=== PATIENT | male | born 1990 | race Caucasian/White ===

== ENCOUNTER 2018-07-21 06:51 | Day surgery (SDC) | payer BC ==
--- NOTE | 2018-07-08 19:47 | HP ---
PREOPERATIVE HISTORY AND PHYSICAL: DATE OF ADMISSION/SURGERY: 07/21/18 DATE OF OFFICE VISIT: 07/05/18 ATTENDING SURGEON: Dr. Rosalinda Peetr.* (DICTATED BY NIKIA ARELLANO) PROCEDURE: Right shoulder excision of distal clavicle open and open coracoclavicular reconstruction. CHIEF COMPLAINT: Right shoulder. HISTORY OF PRESENT ILLNESS: Malik is a 28-year-old male who presents to the clinic for right shoulder type 3 AC separation that is symptomatic. He has failed conservative measures and therefore agreed to undergo a right shoulder excision of distal clavicle open and open coracoclavicular reconstruction with Dr. Peter on 07/21/18. PAST MEDICAL HISTORY: Denies current problems. PAST SURGICAL HISTORY: Wrist surgery. Denies complications with anesthesia. MEDICATIONS: No active medications. ALLERGIES: No known drug allergies. FAMILY HISTORY: Denies pertinent family history. SOCIAL HISTORY: He lives alone. He is a pie bakery laborer. He denies tobacco use. He reports occasional alcohol consumption. He exercises regularly. He is right- hand dominant. REVIEW OF SYSTEMS: A 14-point review of systems was reviewed with the patient. Positive for current complaint, otherwise negative. Denies fever, chills, chest pain, shortness of breath, history of DVT or PE, history of bleeding disorder. PHYSICAL EXAMINATION GENERAL: A 28-year-old well-developed, well-nourished male, in no acute distress. VITAL SIGNS: Height 75, weight 301, pulse 68, blood pressure 128/80, respiratory rate 18, temperature 98.1, BMI 37.7. HEENT: Normocephalic, atraumatic. PERRLA. Throat clear. NECK: Supple. PULMONARY: Lungs are clear to auscultation bilaterally. No wheezing, rhonchi, or rales. CARDIO: Regular rate and rhythm. S1, S2. No murmurs, gallops, or rubs. No edema. ABDOMEN: Positive bowel sounds. Soft, nontender. NEURO: Alert and oriented x3. Cranial nerves grossly intact. MUSCULOSKELETAL: Right upper extremity: Prominent AC joint. There is tenderness to palpation. Forward flexion to 155, abduction to 155, external rotation to 75, internal rotation to the lumbar spine. Full range of motion of the elbow, wrist, and hand. +2 radial pulse. Sensation intact to light touch distally. DIAGNOSTIC STUDIES: Multi-view x-rays of the right shoulder revealed grade 3 AC joint separation. PLAN: The patient is scheduled to undergo a right shoulder excision of distal clavicle open and open coracoclavicular reconstruction with Dr. Peter on . He will follow up 10 to 14 days postop for followup and suture removal. Percocet will be used for postop pain management. NIKIA ARELLANO [id number]/[facility] #: [id number] MTDD
[~2018-07-21 06:51] MED LIST: Buffered Lidocaine 0.9% SYRIN* 5 ML/SYR SYRINGE INTRADERM ONE; Lactated Ringers 1000 ML Bag* 1,000 ML IV SCH
[2018-07-21] MEDS ORDERED: ceFAZolin 2 GM PREMIX in ORs 2 GM/50 ML BAG IVPB ONE (08:06)
[2018-07-21] MEDS ORDERED: ceFAZolin 1 GM ADVAN(*) 1 GM ADDV.VIAL IVPB ONE (08:06)
[2018-07-21] MEDS ORDERED: Propofol* 10 MG/ML 20 ML BTL ONE (08:14)
[2018-07-21] MEDS ORDERED: Lidocaine 2% PF * 5 ML VIAL ONE (08:14)
[2018-07-21] MEDS ORDERED: Rocuronium* 10 MG/ML VIAL ONE (08:15)
[2018-07-21] MEDS ORDERED: Midazolam* 1 MG/ML 2 ML VIAL (2 MG) ONE (08:15)
[2018-07-21] MEDS ORDERED: fentaNYL* 50 MCG/ML 2 ML VIAL (100 MCG VIAL) ONE (08:22)
[2018-07-21] MEDS ORDERED: ROPIVACAINE 5 MG/ML 30 ML BTL (0.5%) ONE ×4 (08:22→10:04)
[2018-07-21] MEDS ORDERED: EPINEPHRINE 1 MG/ML 1 ML VIAL ONE ×2 (08:23→09:38)
[2018-07-21] MEDS ORDERED: Dexamethasone IV* 4 MG/ML 1 ML (4 MG) ONE ×2 (08:23→09:38)
[2018-07-21] MEDS ORDERED: Phenylephrine INJ* 10 MG/ML 1 ML VIAL (10 MG) ONE (10:54)
[2018-07-21] MEDS ORDERED: EPHEDrine (Pressors)* 50 MG/ML VIAL ONE (10:54)
[2018-07-21] MEDS ORDERED: Ketorolac INJ* 30 MG/ML 1 ML VIAL ONE ×2 (11:56→16:24)
[2018-07-21] MEDS ORDERED: Ondansetron INJ* 2 MG/ML VIAL ONE ×2 (11:56→16:24)
[2018-07-21] MEDS ORDERED: Metoclopramide IV* 5 MG/ML 2 ML VIAL ONE ×2 (11:56→16:24)
[2018-07-21] MEDS ORDERED: Acetaminophen IV 1GM/100ML * 100 ML ONE (12:06)
[2018-07-21] MEDS ORDERED: DiMENhydriNATE IV* 50 MG/ML VIAL IV PUSH PRN (12:11)
[2018-07-21] MEDS ORDERED: Naloxone* 0.4 MG/ML 1 ML VIAL IV PRN (12:11)
[2018-07-21] MEDS ORDERED: oxyCODONE TAB* 5 MG TAB PO PRN (12:11)
[2018-07-21] MEDS ORDERED: Mineral Oil Sterile, TOPICAL* 25 ML BTL ONE (12:39)
[2018-07-21] MEDS ORDERED: Glycopyrrolate IV* 0.2 MG/ML 1 ML VIAL ONE ×2 (13:06→16:24)
[2018-07-21] MEDS ORDERED: Neostigmine Methylsulfate* 1 MG/ML 10 ML VIAL (1 mg/ml) ONE ×2 (13:06→16:24)
[2018-07-21] MEDS ORDERED: HYDROmorphone INJ1* 1 MG/ML SYRINGE ONE (14:20)
[2018-07-21] MEDS: HYDROmorphone INJ1* 1 MG/ML SYRINGE IV PRN ×2 (14:21→14:50)
[2018-07-21] MEDS ORDERED: oxyCODONE TAB* 5 MG TAB ONE (14:41)
[2018-07-21 17:14] VITALS: BP 116/59
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
== END 2018-07-21 17:31 | disposition home or self-care (01) ==
LOC: OR 06:51
PROVIDERS: ATTEND Orthopaedic Surgery
DX: M24.411 Recurrent dislocation, right shoulder (principal); M19.90 Unspecified osteoarthritis, unspecified site; G89.18 Other acute postprocedural pain
CPT/HCPCS: 88304; 88311; A9270-GY; C1713; C1768; J0690; J1100; J1170; J1885; J2250; J2405; J2704; J2710; J2765; J2795; J3010

== ENCOUNTER 2018-07-27 21:41 | Emergency (ER) | payer BC ==
--- OUTSIDE RECORDS SUMMARY | 2018-07-27 21:57 | XMS REPORT | Continuity of Care Document ---
:1990 External Reference #:[id number] Author Name Jefe Otto Care Team Providers Name Role Phone Patient's Choice Primary Care Physician Unavailable Payers Type Date Identification Numbers Payment Provider Subscriber Policy Number: [id number] [employer] Malik Steve PayID: [id number] [address] [address] [place] [address] Advance Directives Description No Information Available Problems Date Description Provider Status Onset: 04/05/2018 Sprain of acromioclavicular ligament Rosalinda Peter MD Active Onset: 2018 Wrist joint pain Rosalinda Peter MD Active Family History Description No Information Available Social History Type Date Description Comments Sex Unknown Lives With Alone ETOH Use Denies alcohol use Tobacco Use Start: Unknown Patient has never smoked Smoking Status Reviewed: 06/28/18 Patient has never smoked Exercise Type/Frequency Exercises regularly Allergies, Adverse Reactions, Alerts Description No Known Drug Allergies Medications Medication Date Status Form Strength Qnty SIG Indications Ordering Provider No Active Active Unknown Medications 018 Oxycodone-Acet Hx Tablets 5-325mg 10tabs 1 tab by Rosalinda aminophen 018 - mouth MD [place] daily as 018 needed for pain Diclofenac Hx Tablets DR 75mg 60tabs take 1 S43.51xA Koffib Sodium 018 - tablet MD [place] twice a 018 day with food Endocet 00/00/0 Hx Tablets 5-325mg 1 by Unknown 000 - mouth every 6 018 hour as needed pain Medications Administered in Office Medication Date Status Form Strength Qnty SIG Indications Ordering Provider Triamcinolone Injection Rosalinda (Kenalog) 2017 MD [place] Immunizations Description No Information Available Vital Signs Date Vital Result Comment 06/28/2018 2:17pm Height 65 inches 5'5" Weight 272.00 lb BP Systolic 118 mmHg BP Diastolic 70 mmHg Respiratory Rate 18 /min Pain Level 0 BMI (Body Mass Index) 45.3 kg/m2 06/07/2018 1:47pm Height 65 inches 5'5" Weight 272.00 lb BP Systolic 126 mmHg BP Diastolic 62 mmHg Respiratory Rate 18 /min Pain Level 0 BMI (Body Mass Index) 45.3 kg/m2 05/10/2018 1:34pm Height 65 inches 5'5" Weight 272.00 lb BP Systolic 130 mmHg BP Diastolic 80 mmHg Respiratory Rate 18 /min Pain Level 7 BMI (Body Mass Index) 45.3 kg/m2 2018 1:11pm Weight 272.00 lb Heart Rate 56 /min BP Systolic Sitting 104 mmHg BP Diastolic Sitting 64 mmHg Respiratory Rate 16 /min Body Temperature 97.9 F Pain Level 5 04/05/2018 9:52am Weight 287.50 lb Heart Rate 60 /min BP Systolic Sitting 124 mmHg BP Diastolic Sitting 80 mmHg Respiratory Rate 16 /min Body Temperature 97.7 F Pain Level 8 Results Description No Information Available Procedures Date Code Description Status 2018 77776 Inject/Drain Joint/Bursa Intermediate W/O US Completed Encounters Type Date Location Provider Dx Diagnosis Office Visit 06/07/2018 Maciel Peter, S43.51xD Sprain of right 1:45p [facility], subs enc[facility]tr Office Visit 05/10/2018 Maciel Peter S43.51xD Sprain of right 1:45p [facility], subs encntr M25.532 Pain in left wrist Office Visit 2018 Orthopedic Rosalinda S43.51xA Sprain of right 1:15p [facility] [place] acromioclavicular [facility] joint, initial encounter M25.532 Pain in left wrist S43.51xD Sprain of right acromioclavicular joint, subs encntr Office Visit 04/05/2018 Orthopedic Rosalinda S43.51xA Sprain of right 9:15a [facility] [place] acromioclavicular [facility] joint, initial encounter Plan of Treatment Future Appointment(s):08/02/2018 2:15 pm - Rosalinda Peter MD [facility]06/28/2018 - Rosalinda Peter, MDS43.51xD Sprain of right acromioclavicular joint, subsequent encounteNew Therapy:Physical TherapyFollow up:Follow up: 4-6 weeks
[2018-07-27] MEDS ORDERED: NS 0.9% 1000 ML* 1,000 ML IV ONE (23:39)
[2018-07-27] MEDS ORDERED: Ondansetron INJ* 2 MG/ML VIAL IV ONE (23:39)
[2018-07-27 23:45] LABS: ABS Basophils 0.1 10^3/ul (0-0.2); ABS Eosinophils 0.3 10^3/ul (0-0.6); ABS Lymphocytes 2.2 10^3/ul (1.0-4.8); ABS Monocytes 0.7 10^3/ul (0-0.8); ABS Nucleated RBC 0 10^3/ul; Eosinophil % 3.2 %; Hematocrit 45 % (42-52); Hemoglobin 15.2 g/dl (14.0-18.0); Mean Corpuscular HGB Conc 34 g/dl (31-36); Mean Corpuscular Hemoglobin 28 pg (27-31); Mean Corpuscular Volume 84 fL (80-94); Mean Platelet Volume 8.2 fL (7.4-10.4); Nucleated Red Blood Cells % 0.4; Platelet Count 196 10^3/ul (150-450); Red Blood Count 5.38 10^6/ul (4.00-5.40); Red Cell Distribution Width 14 % (10.5-15); White Blood Count 10.2 10^3/ul (3.5-10.8)
[2018-07-27 23:54] LABS: INR 0.9 (0.77-1.02)
[2018-07-28 00:02] LABS: Albumin 4.2 g/dL (3.2-5.2); Albumin/Globulin Ratio 1.4 (1-3); BUN/Creatinine Ratio 15.2 (8-20); C Reactive Protein 13.55 mg/L (<8.01); Calcium 9.5 mg/dL (8.6-10.3); Globulin 3.1 g/dL (2-4); Potassium 4.1 mmol/L (3.5-5.0); Total Bilirubin 0.4 mg/dL (0.2-1.0); Total Protein 7.3 g/dL (6.4-8.9)
[2018-07-28] MEDS ORDERED: Morphine VIAL* 10 MG/ML 1 ML VIAL IV ONE (00:31)
[2018-07-28] MEDS ORDERED: Morphine VIAL* 4 MG/ML VIAL (1 ml vial) ONE (00:54)
--- NOTE | 2018-07-28 01:32 | ED ---
Nausea/Vomiting/Diarrhea HPI - HPI Summary HPI Summary: Patient with history of right shoulder surgery 5 days ago complaining of sudden onset episode of vomiting at 8 PM today. Patient states episode of vomiting lasted 20 minutes, with blood appearing in vomitus towards the end. Denies history of same. States started vomiting while eating pizza. Denies fever, cough, sore throat, CP, SOB, diarrhea, change in urine, abdominal pain. Medical history is none. Abdominal surgical history is none. - History of Current Complaint Chief Complaint: EDNauseaVomitDiarrh Stated Complaint: VOMITING BLOOD SURGERY 5 DAYS AGO Time Seen by Provider: 07/27/18 23:25 Hx Obtained From: Patient Onset/Duration: Sudden Onset Timing: Intermittent Episodes Lasting: Severity Currently: None Pain Intensity: 0 Pain Scale Used: 0-10 Numeric Nausea/Vomiting Presence: Nauseated, Vomiting Vomiting Characteristics: Nonbilious, Bloody Diarrhea Presence: No - Allergies/Home Medications Allergies/Adverse Reactions: Allergies Allergy/AdvReac Type Severity Reaction Status Date / Time No Known Allergies Allergy Verified 07/27/18 21:50 PMH/Surg Hx/FS Hx/Imm Hx Endocrine/Hematology History: Denies: Hx Diabetes Cardiovascular History: Denies: Hx Congenital Heart Disease, Hx Coronary Artery Disease, Hx Hypercholesterolemia, Hx Hypertension, Hx Pacemaker/ICD Respiratory History: Denies: Hx Chronic Obstructive Pulmonary Disease (COPD), Hx Lung Cancer, Hx Pleural Effusion GI History: Denies: Hx Pyloric Stenosis History: Denies: Hx Renal Disease Musculoskeletal History: Reports: Hx Arthritis Sensory History: Reports: Hx Contacts or Glasses - GLASSES Denies: Hx Hearing Aid Opthamlomology History: Reports: Hx Contacts or Glasses - GLASSES Psychiatric History: Denies: Hx Panic Disorder - Cancer History Hx Chemotherapy: No - Surgical History Surgery Procedure, Year, and Place: LEFT ARM Hx Anesthesia Reactions: No - Immunization History Immunizations Up to Date: Yes Infectious Disease History: No Infectious Disease History: Denies: History Other Infectious Disease, Traveled Outside the [place] in Last 30 Days - Family History Known Family History: Positive: Other - gerd - Social History Lives: Alone Alcohol Use: Occasionally Hx Substance Use: No Substance Use Type: Reports: None Hx Tobacco Use: No Smoking Status (MU): Never Smoked Tobacco Review of Systems Constitutional: Negative Eyes: Negative ENT: Negative Cardiovascular: Negative Respiratory: Negative Positive: Vomiting, Nausea Genitourinary: Negative Musculoskeletal: Negative Skin: Negative Neurological: Negative Psychological: Normal All Other Systems Reviewed And Are Negative: Yes Physical Exam - Summary Physical Exam Summary: Abdominal exam unremarkable. No active N/V or in the ED. ENT exam unremarkable. Triage Information Reviewed: Yes Vital Signs On Initial Exam: Initial Vitals Temp Pulse Resp BP Pulse Ox 98.2 F 68 16 122/65 99 07/27/18 21:48 07/27/18 21:48 07/27/18 21:48 07/27/18 21:48 07/27/18 21:48 Vital Signs Reviewed: Yes Appearance: Positive: Well-Appearing Skin: Positive: Warm Head/Face: Positive: Normal Head/Face Inspection Eyes: Positive: Normal ENT: Positive: Normal ENT inspection Neck: Positive: Supple Respiratory/Lung Sounds: Positive: Clear to Auscultation Cardiovascular: Positive: Normal Abdomen Description: Positive: Nontender Musculoskeletal: Positive: Normal Neurological: Positive: Normal Psychiatric: Positive: Normal AVPU Assessment: Alert - Nancy Coma Scale Best Eye Response: 4 - Spontaneous Best Motor Response: 6 - Obeys Commands Best Verbal Response: 5 - Oriented Coma Scale Total: 15 Diagnostics - Vital Signs Vital Signs Temp Pulse Resp BP Pulse Ox 07/28/18 00:56 20 07/27/18 21:48 98.2 F 68 16 122/65 99 - Laboratory Lab Results: Lab Results 07/27/18 07/27/18 07/27/18 Range/Units 23:39 23:39 23:39 WBC 10.2 (3.5-10.8) 10^3/ul RBC 5.38 (4.00-5.40) 10^6/ul Hgb 15.2 (14.0-18.0) g/dl Hct 45 (42-52) % MCV 84 (80-94) fL MCH 28 (27-31) pg MCHC 34 (31-36) g/dl RDW 14 (10.5-15) % Plt Count 196 (150-450) 10^3/ul MPV 8.2 (7.4-10.4) fL Neut % (Auto) 68.2 % Lymph % (Auto) 21.0 % [place] % (Auto) 6.8 % Eos % (Auto) 3.2 % Baso % (Auto) 0.8 % Absolute Neuts (auto) 7.0 (1.5-7.7) 10^3/ul Absolute Lymphs (auto) 2.2 (1.0-4.8) 10^3/ul Absolute Monos (auto) 0.7 (0-0.8) 10^3/ul Absolute Eos (auto) 0.3 (0-0.6) 10^3/ul Absolute Basos (auto) 0.1 (0-0.2) 10^3/ul Absolute Nucleated RBC 0 10^3/ul Nucleated RBC % 0.4 INR (Anticoag Therapy) 0.90 (0.77-1.02) Sodium 139 (135-145) mmol/L Potassium 4.1 (3.5-5.0) mmol/L Chloride 106 (101-111) mmol/L Carbon Dioxide 26 (22-32) mmol/L Anion Gap 7 (2-11) mmol/L BUN 12 (6-24) mg/dL Creatinine 0.79 (0.67-1.17) mg/dL Est GFR ( Amer) 140.3 (>60) Est GFR (Non-Af Amer) 116.0 (>60) BUN/Creatinine Ratio 15.2 (8-20) Glucose 108 H (70-100) mg/dL Lactic Acid (0.5-2.0) mmol/L Calcium 9.5 (8.6-10.3) mg/dL Total Bilirubin 0.40 (0.2-1.0) mg/dL AST 15 (13-39) U/L ALT 27 (7-52) U/L Alkaline Phosphatase 85 (34-104) U/L C-Reactive Protein 13.55 H (<8.01) mg/L Total Protein 7.3 (6.4-8.9) g/dL Albumin 4.2 (3.2-5.2) g/dL Globulin 3.1 (2-4) g/dL Albumin/Globulin Ratio 1.4 (1-3) 07/27/18 Range/Units 23:39 WBC (3.5-10.8) 10^3/ul RBC (4.00-5.40) 10^6/ul Hgb (14.0-18.0) g/dl Hct (42-52) % MCV (80-94) fL MCH (27-31) pg MCHC (31-36) g/dl RDW (10.5-15) % Plt Count (150-450) 10^3/ul MPV (7.4-10.4) fL Neut % (Auto) % Lymph % (Auto) % [place] % (Auto) % Eos % (Auto) % Baso % (Auto) % Absolute Neuts (auto) (1.5-7.7) 10^3/ul Absolute Lymphs (auto) (1.0-4.8) 10^3/ul Absolute Monos (auto) (0-0.8) 10^3/ul Absolute Eos (auto) (0-0.6) 10^3/ul Absolute Basos (auto) (0-0.2) 10^3/ul Absolute Nucleated RBC 10^3/ul Nucleated RBC % INR (Anticoag Therapy) (0.77-1.02) Sodium (135-145) mmol/L Potassium (3.5-5.0) mmol/L Chloride (101-111) mmol/L Carbon Dioxide (22-32) mmol/L Anion Gap (2-11) mmol/L BUN (6-24) mg/dL Creatinine (0.67-1.17) mg/dL Est GFR ( Amer) (>60) Est GFR (Non-Af Amer) (>60) BUN/Creatinine Ratio (8-20) Glucose (70-100) mg/dL Lactic Acid 0.7 (0.5-2.0) mmol/L Calcium (8.6-10.3) mg/dL Total Bilirubin (0.2-1.0) mg/dL AST (13-39) U/L ALT (7-52) U/L Alkaline Phosphatase (34-104) U/L C-Reactive Protein (<8.01) mg/L Total Protein (6.4-8.9) g/dL Albumin (3.2-5.2) g/dL Globulin (2-4) g/dL Albumin/Globulin Ratio (1-3) Result Diagrams: 07/27/18 23:39 07/27/18 23:39 Lab Statement: Any lab studies that have been ordered have been reviewed, and results considered in the medical decision making process. Naus/Vom/Diarrhea Course/Dx - Course Course Of Treatment: Patient with history of right shoulder surgery 5 days ago complaining of sudden onset episode of vomiting at 8 PM today. Patient states episode of vomiting lasted 20 minutes, with blood appearing in vomitus towards the end. Denies history of same. States started vomiting while eating pizza. Denies fever, cough, sore throat, CP, SOB, diarrhea, change in urine, abdominal pain. Medical history is none. Abdominal surgical history is none. Physical exam: Abdominal exam unremarkable. No active N/V or in the ED. ENT exam unremarkable. Vital signs within normal limits. Labs unremarkable. No active emesis here in the ED. 2 L of fluid given. Rx for Zofran. Follow up with GI if symptoms continue - Differential Dx/Diagnosis Provider Diagnosis: Nausea & vomiting Condition At Discharge: Stable Discharge - Sign-Out/Discharge Documenting (check all that apply): Patient Departure - Discharge Plan Condition: Stable Disposition: HOME Prescriptions: Ondansetron ODT TAB* [Zofran 4 MG Odt TAB*] 4 mg PO Q8H PRN 4 Days #14 tab.odt PRN Reason: Nausea Patient Education Materials: Acute Nausea and Vomiting (ED) Referrals: No Primary Care Phys,NOPCP [Primary Care Provider] - Federica Cole MD [Medical Doctor] - Additional Instructions: Use Zofran under tongue to control nausea. Follow-up with GI Dr Cole if bleeding persists. Return to the ED for any new or worsening symptoms - Billing Disposition and Condition Condition: STABLE Disposition: Home
[2018-07-28] MEDS ORDERED: Ondansetron ODT TAB* 4 MG PO ONE (01:33)
[2018-07-28 01:53] VITALS: BP 134/87
== END 2018-07-28 01:53 | disposition home or self-care (01) ==
LOC: ED 21:41
DX: R11.2 Nausea with vomiting, unspecified (principal)
CPT/HCPCS: 36415; 80053; 83605; 85025; 85610; 86140; 96361; 96374; 96375; 99283; A9270-GY; J2270; J2405